=== PATIENT | male | born 1980 | race African-American/Black ===

== ENCOUNTER 2019-05-14 01:02 | Emergency (ER) | payer MEDICAID ==
[~2019-05-14] VITALS: Ht 185.4 cm; Wt 89.4 kg
--- NOTE | 2019-05-14 01:15 | NUR ---
ED Nurse Note: Patient walked in to ER c/o 6/10 L knee pain radiating down leg x3days, denies trauma, worsens when standing. AAO x4, VSS at this time, skin is warm to touch.
[2019-05-14 01:36] VITALS: BP 130/85
[2019-05-14] MEDS ORDERED: IBUPROFEN600 MG ORAL (01:47)
[2019-05-14 01:53] VITALS: BP 130/85
--- NOTE | 2019-05-14 01:53 | NUR ---
ED Nurse Note: Pt cleared by health care Provider for discharge. DC instructions/prescription was given and explained to pt and verbalized understanding of teachings. All medical deviecs such as ID band removed. Pt is AAO x4, ambulatory and left with all personal belongings.
--- NOTE | 2019-05-14 04:47 | Emergency Room Report ---
History of Present Illness General Chief Complaint: Pain Source: Patient Present Illness HPI 38-year-old male presents ED for evaluation. Complaining of pain behind the left knee for the last 3 days. Pain is throbbing, 6 out of 10, radiating down the calf. Worse with walking. Denies any recent fall or injury. Denies any calf swelling. Denies any shortness of breath. No other aggravating relieving factors. Denies any other associated symptoms Allergies: Coded Allergies: No Known Allergies (Unverified , 05/14/19) Patient History Past Medical History: none Past Surgical History: none Pertinent Family History: none Social History: Denies: smoking, alcohol use, drug use Immunizations: UTD Reviewed Nursing Documentation: PMH: Agreed; PSxH: Agreed Nursing Documentation-PMH Past Medical History: No Stated History Review of Systems All Other Systems: negative except mentioned in HPI Physical Exam Vital Signs Date Time Temp Pulse Resp B/P (MAP) Pulse Ox O2 Delivery O2 Flow Rate FiO2 05/14/19 01:17 98.2 94 18 130/85 (100) 94 Room Air Sp02 EP Interpretation: reviewed, normal General Appearance: no apparent distress, alert, GCS 15, non-toxic Head: normocephalic Eyes: bilateral eye normal inspection, bilateral eye PERRL ENT: normal ENT inspection Neck: normal inspection Respiratory: normal inspection Cardiovascular #1: normal inspection Gastrointestinal: normal inspection Rectal: deferred Genitourinary: no CVA tenderness Musculoskeletal: back normal, gait/station normal, normal range of motion, no calf tenderness, tender - tenderness back of L knee Neurologic: alert, oriented x3, responsive, motor strength/tone normal, sensory intact, speech normal Psychiatric: normal inspection Skin: no rash Lymphatic: normal inspection Medical Decision Making Diagnostic Impression: Primary Impression: Strain of calf muscle Qualified Codes: S86.812A - Strain of other muscle(s) and tendon(s) at lower leg level, left leg, initial encounter ER Course Hospital Course 38 yo M presents to pain behind L knee Differential diagnoses include: Fracture, dislocation, sprain, contusion, bursitis Clinical course Patient placed on stretcher. After initial history, physical exam reveals an male in no acute distress. There is some tenderness posterior left knee. No swelling. No crepitus. Full range of motion the left knee. No calf swelling or tenderness. Discussed findings with patient. I have low suspicion for DVT. Likely tendinitis versus muscular. I offered option for venous duplex but patient declined Will prescribe NSAIDs. Safe for discharge for close outpatient follow-up. Will provide referrals Diagnosis - strain of calf muscle stable and discharged to home with prescription for Motrin. Followup with PMD. Return to ED if symptoms recur or worsen Last Vital Signs Date Time Temp Pulse Resp B/P (MAP) Pulse Ox O2 Delivery O2 Flow Rate FiO2 05/14/19 01:53 98.2 18 130/85 94 Room Air 05/14/19 01:17 94 Status: improved Disposition: HOME, SELF-CARE Condition: Stable Scripts Ibuprofen* (MOTRIN*) 600 Mg Tablet 600 MG ORAL Q8H PRN for For Pain, #30 TAB 0 Refills Prov: Keith Saavedra MD 05/14/19 Referrals: NOT CHOSEN IPA/,REFERRING (PCP) [facility] Open 24 hour /7 days a week by Appointment Only [address] [facility] [address] [facility] [address] Patient Instructions: Muscle Strain, [id number] Keith Saavedra MD May 14, 2019 04:47
== END 2019-05-14 01:53 | disposition home or self-care (01) ==
LOC: EMR 01:40
DX: S86.112A Strain of other muscle(s) and tendon(s) of posterior muscle group at lower leg level, left leg, initial encounter (principal); X58.XXXA Exposure to other specified factors, initial encounter; Y92.9 Unspecified place or not applicable
CPT/HCPCS: 99282